=== PATIENT | female | born 1940 | race Caucasian/White ===

== ENCOUNTER → 2017-10-13 | Outpatient (CLI) | payer OTHER, MEDICAID ==
[2017-01-24 06:07] VITALS: BP 110/66
--- NOTE | 2017-10-18 11:32 | MG ---
HISTORY: SCREENING Comparison: 05/15/2015 FINDINGS: Bilateral CC and MLO projections of the right and left breast were obtained. Scattered fibroglandula r tissue is seen to be present. No significant architectural distortion, mass or clustered microcalc ifications can be observed to suggest malignancy. No skin thickening or nipple retraction is appreci ated. No pathological lymphadenopathy can be identified. Benign-appearing calcifications scattered throughout the right and left breasts are observed. IMPRESSION: NO RADIOGRAPHIC EVIDENCE OF MALIGNANCY. ACR CATEGORY: 2 - benign findings. FOLLOW-UP EXAM 1 YEAR. Diagnostic CAD was utilized and reviewed. * 0 (ZERO) - ASSESSMENT INCOMPLETE; ADDITIONAL IMAGING IS NEEDED. * 1/ (ONE) - NEGATIVE. * 2/II (TWO) - BENIGN FINDINGS. * 3/III (THREE) - PROBABLY BENIGN FINDING; SHORT INTERVAL FOLLOW-UP SUGGESTED. * 4/IV (FOUR) - SUSPICIOUS ABNORMALITY; BIOPSY SHOULD BE CONSIDERED. * 5/V - HIGHLY SUSPICIOUS OF MALIGNANCY; BIOPSY SHOULD BE PERFORMED. A NEGATIVE X-RAY REPORT SHOULD NOT DELAY BIOPSY IF A DOMINANT OR CLINICALLY SUSPICIOUS MASS IS PRESENT; 4 TO 8 PERCENT OF CANCERS ARE NOT IDENTIFIED BY X-RAY. A NEGA TIVE REPORT MAY REINFORCE THE CLINICAL IMPRESSION. ADENOSIS AND DENSE BREASTS MAY OBSCURE AN UNDERLY ING NEOPLASM. Reported By:
== END ==
LOC: RAD 13:33
PROVIDERS: ATTEND Nurse Practitioner Family
DX: Z12.31 Encounter for screening mammogram for malignant neoplasm of breast (principal)
CPT/HCPCS: 77067

== ENCOUNTER → 2017-12-24 | Outpatient (CLI) | payer OTHER, MEDICAID ==
[2017-01-24 06:07] VITALS: BP 110/66
--- NOTE | 2017-12-24 10:01 | RAD ---
Examination: Left hip, two views History: Hip pain Findings: No evidence for fracture, dislocation or osteolytic disease. Mild narrowing of joint space. The femoral head is in normal position. No periarticular calcification identified. Vascular stent gr afts are present at the aortoiliac bifurcation. Impression: Mild osteoarthritis. Reported By:
== END | disposition home or self-care (01) | DRG 556 ==
LOC: RAD 08:52
PROVIDERS: ATTEND Nurse Practitioner Family
DX: M25.552 Pain in left hip (principal); M16.12 Unilateral primary osteoarthritis, left hip
CPT/HCPCS: 73501

== ENCOUNTER 2018-01-24 12:04 | Day surgery (SDC) | payer OTHER, MEDICAID ==
[2018-01-24] MEDS ORDERED: KENALOG INJ 40 MG IM ONE (13:25)
[2018-01-24] MEDS ORDERED: MARCAINE 0.25% INJ ONE (13:25)
[2018-01-24] MEDS ORDERED: XYLOCAINE 1 % (PLAIN) ONE (13:25)
[2018-01-24 14:14] VITALS: BP 148/77
--- NOTE | 2018-01-24 15:19 | RAD ---
History: Shortness of breath Study: Chest two views Findings: PA and left lateral projections of the chest are compared to the study of 03/19/2016. Heart and mediastinal structures are unchanged in appearance. The permanent left-sided cardiac pacemaker r emains in place. There is overexpansion of the lungs with increase in the retrosternal airspace consi stent with underlying COPD. No acute process is evident. Impression: Probable COPD and no evidence of acute disease. Reported By:
== END 2018-01-24 14:00 | disposition home or self-care (01) | DRG 554 ==
LOC: SURG1 12:04
PROVIDERS: ATTEND Specialist
PROC: 3E0U3BZ Introduction of Anesthetic Agent into Joints, Percutaneous Approach (ICD-10-PCS; principal; 2018-01-24 13:15)
PROC: 3E0U33Z Introduction of Anti-inflammatory into Joints, Percutaneous Approach (ICD-10-PCS; principal; 2018-01-24 13:15)
DX: M16.12 Unilateral primary osteoarthritis, left hip (principal)
CPT/HCPCS: 20610; 71046; 76000; 77002; S0020; J2001; J3301

== ENCOUNTER 2024-09-26 18:34 | Inpatient (IN) ==
[2024-09-26] MEDS: NS 1,000 ML IV 1,000 ML IV ONE (19:10)
[2024-09-26] MEDS ORDERED: ASCORBIC ACID INJ MULTI-DOSE VIAL 1,500 MG in NS 50 ML IV 50 ML IV SCH (19:30)
[2024-09-26] MEDS: LEVAQUIN PREMIX IV 750 MG 750 MG/150 ML BAG IV ONE (19:31)
[2024-09-26] MEDS: SOLU-Medrol 125 MG VIAL IVP ONE (19:31)
[2024-09-26] MEDS: MAGNESIUM SULFATE 1 GRAM/100 mL PREMIX 1 G/100 ML BAG IV ONE (19:32)
[2024-09-26 19:45] LABS: EOSINOPHILS # (AUTO) 0.1 x10^3/uL (0.0-0.2); HEMOGLOBIN 13.7 g/dL (12.0-16.0); MEAN CORPUSCULAR HGB CONC 34.2 g/dL (33.0-35.0); MEAN PLATELET VOLUME 9.2 fL (7.4-11.0); MONOCYTES # (AUTO) 0 x10^3/uL (0.3-0.8)
[2024-09-26 19:48] LABS: BASOPHILS % (AUTO) 0.4 % (0.2-1.0); EOSINOPHILS % (AUTO) 1.4 % (0.9-2.9); LYMPHOCYTES % (AUTO) 24.6 % (21.0-51.0); MEAN CORPUSCULAR HEMOGLOBIN 31.7 pg (27.0-34.0); MEAN CORPUSCULAR VOLUME 92.6 fL (80.0-100.0); NEUTROPHILS % (AUTO) 72.6 % (42.0-75.0); PLATELET COUNT 54 X10^3/uL (150.0-450.0); RED BLOOD COUNT 4.32 X10^6/uL (3.5-5.4); RED CELL DISTRIBUTION WIDTH 15.8 % (11.6-16.5); WHITE BLOOD COUNT 4.2 X10^3/uL (3.6-10.0)
--- NOTE | 2024-09-26 19:54 | DR.DIARMA ---
HPI <Manny Singer - Last Filed: 09/26/24 20:15> Time seen Time Seen by Provider: 09/26/24 19:52 PCP Primary Care Physician: Lois Hidalgo HPI Comment HPI Comment: Patient with history of pancreatic cancer who was seen recently in the ED for UTI and started on Macrobid. Sensitivities resulted today and she is resistant to Macrobid but sensitive to Levaquin. Patient has had worsening weakness and episodes of incontinence over the weekend. Patient having some abdominal pain. Complaint Chief Complaint:: PT in ed with complaints of weakness and incontinent episodes since the weekend, pt was dx with a bladder infection and started on macrobid, still having lots of vaginal and abdominal pain. COVID-19 Coronavirus risk:travel/contact w/high risk person: No Has patient experienced Coronavirus symptoms: No Source History Provided: Patient Mode of Arrival Mode of Arrival: Wheelchair Timing Onset of Chief Complaint: 09/23/24 PMH <Manny Singer - Last Filed: 09/26/24 20:15> PMH Past Medical History: Yes Past Medical History: Arthritis, COPD, Dyslipidemia and Hypothyroidism Past Medical History Comment: Pancreatic CA Past Surgical History: Yes Surgical History: Appendectomy and Cholecystectomy Family History History of Family Medical Conditions: No Family Medical History: Diabetes Mellitus and Hypertension Social History Do you use any recreational Drugs:: No Travel Risk Coronavirus risk:travel/contact w/high risk person: No Has patient experienced Coronavirus symptoms: No Infectious screening Have you traveled outside the country in the last 6 months?: No Isolation: Standard ROS <Manny Singer - Last Filed: 09/26/24 20:15> Review of Systems Constitutional: See HPI; negative Fever Eyes: No Symptoms Reported ENTM: No Symptoms Reported Respiratoy: No Symptoms Reported Cardiovascular: No Symptoms Reported Gastrointestinal/Abdominal: See HPI Genitourinary: See HPI Neurological: No Symptoms Reported Musculoskeletal: No Symptoms Reported Integumentary: No Symptoms Reported Hematologic/Lymphatic: No Symptoms Reported Endocrine: No Symptoms Reported Psychiatric: No Symptoms Reported All Other Systems: Reviewed and Negative <Yanci Mason - Last Filed: 09/26/24 22:53> Review of Systems Eyes: Other (blind) PE <Manny Singer - Last Filed: 09/26/24 20:15> Vital Signs Vitals: Vital Signs Temperature 97.9 F Pulse Rate 70 Pulse Rate 77 Pulse Rate 75 Pulse Rate 81 Pulse Rate 74 Pulse Rate 76 Pulse Rate 76 Pulse Rate 73 Pulse Rate 70 Pulse Rate 106 Respiratory Rate 20 Blood Pressure 110/56 Blood Pressure 119/57 Blood Pressure 119/57 Blood Pressure 119/57 Blood Pressure 114/56 Blood Pressure 106/59 Blood Pressure 106/59 Blood Pressure 101/66 O2 Sat by Pulse Oximetry 95 O2 Sat by Pulse Oximetry 96 O2 Sat by Pulse Oximetry 96 O2 Sat by Pulse Oximetry 97 O2 Sat by Pulse Oximetry 95 O2 Sat by Pulse Oximetry 96 O2 Sat by Pulse Oximetry 96 O2 Sat by Pulse Oximetry 94 O2 Sat by Pulse Oximetry 96 O2 Sat by Pulse Oximetry 94 General Limitations: No Limitations General Appearance: Alert Head Head Exam: Normal Inspection Eyes Eye exam: Normal Appearance ENT ENT Exam: Normal Exam Neck Neck Exam: Normal Inspection Chest Chest Inspection: Normal Inspection Respiratory Respiratory Exam: Normal Lung Sounds Bilat Cardiovascular Cardiovascular Exam: Regular Rate and Normal Rhythm Abdominal Exam Abdominal Exam: Normal Inspection, Normal Bowel Sounds and Soft; negative Guarding, Rebound or Rigidity Rectal Rectal: Deferred Genitourinary Scrotum: Deferred Hernia: Deferred Prostate: Deferred Extremeties Extremities Exam: Normal Inspection Back Back Exam: Normal Inspection Neurologic Neurological Exam: Alert and Oriented X3 Psychiatric Psychiatric Exam: Normal Affect and Normal Mood Skin Skin Exam: Warm, Dry, Intact and Normal Color <Yanci Mason - Last Filed: 09/26/24 22:53> Vital Signs Vitals: Vital Signs Temperature 97.9 F Pulse Rate 70 Pulse Rate 77 Pulse Rate 75 Pulse Rate 81 Pulse Rate 74 Pulse Rate 76 Pulse Rate 76 Pulse Rate 73 Pulse Rate 70 Pulse Rate 106 Respiratory Rate 20 Blood Pressure 110/56 Blood Pressure 119/57 Blood Pressure 119/57 Blood Pressure 119/57 Blood Pressure 114/56 Blood Pressure 106/59 Blood Pressure 106/59 Blood Pressure 101/66 O2 Sat by Pulse Oximetry 95 O2 Sat by Pulse Oximetry 96 O2 Sat by Pulse Oximetry 96 O2 Sat by Pulse Oximetry 97 O2 Sat by Pulse Oximetry 95 O2 Sat by Pulse Oximetry 96 O2 Sat by Pulse Oximetry 96 O2 Sat by Pulse Oximetry 94 O2 Sat by Pulse Oximetry 96 O2 Sat by Pulse Oximetry 94 COURSE <Manny Singer - Last Filed: 09/26/24 20:15> Treatment Treatment: 20:00 -start IV Levaquin. Started IV fluids. Labs still pending. Discussed case with Dr. Mason was taken over shift here in the ER. Patient stable at this time <Yanci Mason - Last Filed: 09/26/24 22:53> Treatment Treatment: 20:00 -start IV Levaquin. Started IV fluids. Labs still pending. Discussed case with Dr. Mason was taken over shift here in the ER. Patient stable at this time. [address] Singer at 1999; pt resting comfortably; she has had no more diarrhea; pain is improved; will admit overnight to ensure potassium comes up and diarrhea improves Consultation Call Returned: 22:00 (s/w Dr Andersen who accepts admission) ROR <Manny Singer - Last Filed: 09/26/24 20:15> Labs Reviewed 09/26/24 19:36 09/26/24 19:55 Laboratory: WBC 4.2 X10^3/uL (3.6-10.0) 09/26/24 19:36 RBC 4.32 X10^6/uL (3.5-5.4) 09/26/24 19:36 Hgb 13.7 g/dL (12.0-16.0) 09/26/24 19:36 Hct 40.0 % (36.0-47.0) 09/26/24 19:36 MCV 92.6 fL (80.0-100.0) 09/26/24 19:36 MCH 31.7 pg (27.0-34.0) 09/26/24 19:36 MCHC 34.2 g/dL (33.0-35.0) 09/26/24 19:36 RDW 15.8 % (11.6-16.5) 09/26/24 19:36 Plt Count 54 X10^3/uL (150.0-450.0) L 09/26/24 19:36 MPV 9.2 fL (7.4-11.0) 09/26/24 19:36 Neut % (Auto) 72.6 % (42.0-75.0) 09/26/24 19:36 Lymph % (Auto) 24.6 % (21.0-51.0) 09/26/24 19:36 [place] % (Auto) 1.0 % (0.0-13.0) 09/26/24 19:36 Eos % (Auto) 1.4 % (0.9-2.9) 09/26/24 19:36 Baso % (Auto) 0.4 % (0.2-1.0) 09/26/24 19:36 Neut # (Auto) 3.0 x10^3/uL (2.2-4.8) 09/26/24 19:36 Lymph # (Auto) 1.0 X10^3/uL (1.3-2.9) L 09/26/24 19:36 [place] # (Auto) 0 x10^3/uL (0.3-0.8) L 09/26/24 19:36 Eos # (Auto) 0.1 x10^3/uL (0.0-0.2) 09/26/24 19:36 Baso # (Auto) 0.0 X10^3/uL (0.0-0.1) 09/26/24 19:36 Absolute Nucleated RBC 0.2 /100WBC 09/26/24 19:36 Sodium 137 mmol/L (136-145) 09/26/24 19:55 Corrected Sodium 138 mmol/L (136-145) 09/26/24 19:55 Potassium 2.9 mmol/L (3.5-5.1) L* 09/26/24 19:55 Chloride 97 mmol/L (98-107) L 09/26/24 19:55 Carbon Dioxide 25.2 mmol/L (21-32) 09/26/24 19:55 BUN 12 mg/dL (7-18) 09/26/24 19:55 Creatinine 1.01 mg/dL (0.55-1.02) 09/26/24 19:55 Est GFR (MDRD) Af Amer > 60 (>60) 09/26/24 19:55 Est GFR (MDRD) Non-Af 55 (>60) L 09/26/24 19:55 Glucose 121 mg/dL (65-99) H 09/26/24 19:55 Lactic Acid 1.4 mmol/L (0.4-2.0) 09/26/24 19:55 Calcium 8.8 mg/dL (8.5-10.1) 09/26/24 19:55 Corrected Calcium TNP 09/26/24 19:55 Total Bilirubin 1.10 mg/dL (0.2-1.0) H 09/26/24 19:55 AST 36 Units/L (15-37) 09/26/24 19:55 ALT 24 Units/L (12-78) 09/26/24 19:55 Alkaline Phosphatase 75 Units/L (46-116) 09/26/24 19:55 C-Reactive Protein 32.80 mg/L (0-3.0) H 09/26/24 19:55 Total Protein 6.6 g/dL (6.4-8.2) 09/26/24 19:55 Albumin 3.5 g/dL (3.4-5.0) 09/26/24 19:55 Globulin 3.1 g/dL (2.5-4.5) 09/26/24 19:55 Albumin/Globulin Ratio 1.1 Ratio (1.1-2.1) 09/26/24 19:55 <Yanci Mason - Last Filed: 09/26/24 22:53> Labs Reviewed Laboratory Results Reviewed?: Yes Laboratory: WBC 4.2 X10^3/uL (3.6-10.0) 09/26/24 19:36 RBC 4.32 X10^6/uL (3.5-5.4) 09/26/24 19:36 Hgb 13.7 g/dL (12.0-16.0) 09/26/24 19:36 Hct 40.0 % (36.0-47.0) 09/26/24 19:36 MCV 92.6 fL (80.0-100.0) 09/26/24 19:36 MCH 31.7 pg (27.0-34.0) 09/26/24 19:36 MCHC 34.2 g/dL (33.0-35.0) 09/26/24 19:36 RDW 15.8 % (11.6-16.5) 09/26/24 19:36 Plt Count 54 X10^3/uL (150.0-450.0) L 09/26/24 19:36 MPV 9.2 fL (7.4-11.0) 09/26/24 19:36 Neut % (Auto) 72.6 % (42.0-75.0) 09/26/24 19:36 Lymph % (Auto) 24.6 % (21.0-51.0) 09/26/24 19:36 [place] % (Auto) 1.0 % (0.0-13.0) 09/26/24 19:36 Eos % (Auto) 1.4 % (0.9-2.9) 09/26/24 19:36 Baso % (Auto) 0.4 % (0.2-1.0) 09/26/24 19:36 Neut # (Auto) 3.0 x10^3/uL (2.2-4.8) 09/26/24 19:36 Lymph # (Auto) 1.0 X10^3/uL (1.3-2.9) L 09/26/24 19:36 [place] # (Auto) 0 x10^3/uL (0.3-0.8) L 09/26/24 19:36 Eos # (Auto) 0.1 x10^3/uL (0.0-0.2) 09/26/24 19:36 Baso # (Auto) 0.0 X10^3/uL (0.0-0.1) 09/26/24 19:36 Absolute Nucleated RBC 0.2 /100WBC 09/26/24 19:36 Sodium 137 mmol/L (136-145) 09/26/24 19:55 Corrected Sodium 138 mmol/L (136-145) 09/26/24 19:55 Potassium 2.9 mmol/L (3.5-5.1) L* 09/26/24 19:55 Chloride 97 mmol/L (98-107) L 09/26/24 19:55 Carbon Dioxide 25.2 mmol/L (21-32) 09/26/24 19:55 BUN 12 mg/dL (7-18) 09/26/24 19:55 Creatinine 1.01 mg/dL (0.55-1.02) 09/26/24 19:55 Est GFR (MDRD) Af Amer > 60 (>60) 09/26/24 19:55 Est GFR (MDRD) Non-Af 55 (>60) L 09/26/24 19:55 Glucose 121 mg/dL (65-99) H 09/26/24 19:55 Lactic Acid 1.4 mmol/L (0.4-2.0) 09/26/24 19:55 Calcium 8.8 mg/dL (8.5-10.1) 09/26/24 19:55 Corrected Calcium TNP 09/26/24 19:55 Total Bilirubin 1.10 mg/dL (0.2-1.0) H 09/26/24 19:55 AST 36 Units/L (15-37) 09/26/24 19:55 ALT 24 Units/L (12-78) 09/26/24 19:55 Alkaline Phosphatase 75 Units/L (46-116) 09/26/24 19:55 C-Reactive Protein 32.80 mg/L (0-3.0) H 09/26/24 19:55 Total Protein 6.6 g/dL (6.4-8.2) 09/26/24 19:55 Albumin 3.5 g/dL (3.4-5.0) 09/26/24 19:55 Globulin 3.1 g/dL (2.5-4.5) 09/26/24 19:55 Albumin/Globulin Ratio 1.1 Ratio (1.1-2.1) 09/26/24 19:55 Other Results Comments: 09/23/24 urine: K. pneumonia and P. mirabilis resistant to macrobid and tcn 09/23/24 covid + XRAY XRAY Interpreted by: Radiologist X-ray Results: pcxr: No imaging findings of acute cardiopulmonary disease. Opioid <Manny Singer - Last Filed: 09/26/24 20:15> Opioid Risk Tool Age (Raymon box if 16-45): No History of Preadolescent Sexual Abuse: No Total: 0 Total Score Risk Category: Low Risk Copyright: Xavier FREIRE predicting aberrant behaviors <Yanci Mason - Last Filed: 09/26/24 22:53> Opioid Risk Tool Total: 0 Total Score Risk Category: Low Risk Discharge Plan Diagnosis Discharge Problem: Cystitis, COVID-19, Acute hypokalemia, Diarrhea Discharge Plan Patient Disposition: 09 ADMITTED INPATIENT Condition: Stable
[2024-09-26 20:15] LABS: ALANINE AMINOTRANSFERASE 24 Units/L (12-78); ALBUMIN 3.5 g/dL (3.4-5.0); ALKALINE PHOSPHATASE 75 Units/L (46-116); ASPARTATE AMINO TRANSFERASE 36 Units/L (15-37); BLOOD UREA NITROGEN 12 mg/dL (7-18); CALCIUM 8.8 mg/dL (8.5-10.1); CARBON DIOXIDE 25.2 mmol/L (21-32); CHLORIDE 97 mmol/L (98-107); COR NA(FOR HYPERGLY) 138 mmol/L (136-145); CREATININE 1.01 mg/dL (0.55-1.02); GLUCOSE 121 mg/dL (65-99); SODIUM 137 mmol/L (136-145); TOTAL PROTEIN 6.6 g/dL (6.4-8.2); eGFR NON BLACK RACES 55 (>60)
[2024-09-26 20:21] LABS: POTASSIUM 2.9 mmol/L (3.5-5.1)
[2024-09-26] MEDS: K-DUR TAB 20 MEQ PO STA (20:48)
--- NOTE | 2024-09-26 22:37 | RAD ---
EXAM: CHEST, 1 VIEW HISTORY: weakness and incontinent episodes since the weekend, pt was dx with a bladder infection and started o n macrobid, still having lots of vaginal and abdominal pain.; COMPARISON: April 07, 2022 TECHNIQUE: Chest radiographic imaging, AP portable projection, 1 image FINDINGS: No cardiomegaly. Pacemaker in place. Right chest port in place. No focal airspace disease. No pleural effusion. No pneumothorax. No acute osseous abnormality. IMPRESSION: No imaging findings of acute cardiopulmonary disease. THIS IS AN ELECTRONICALLY VERIFIED FINAL REPORT 09/26/2024 10:33 PM - Electronically signed by Jose Roberto Jaramillo MD
[2024-09-26] MEDS ORDERED: CONSULT PHARMACY - POTASSIUM & MAGNESIUM XX SCH (23:00)
[2024-09-26] MEDS: NS 1,000 ML IV 1,000 ML IV SCH (23:41)
[2024-09-27] MEDS: BUTT CREAM (COMPOUND) TOP PRN (00:37)
[2024-09-27] MEDS: MAGNESIUM SULFATE 1 GRAM/100 mL PREMIX 1 G/100 ML BAG IV ONE (05:04)
[2024-09-27] MEDS: LEVAQUIN PREMIX IV 750 MG 750 MG/150 ML BAG IV ONE (05:05)
[2024-09-27] MEDS: K-DUR TAB 20 MEQ PO ONE (05:05)
[2024-09-27] MEDS: SOLU-Medrol 125 MG VIAL ONE (05:05)
[2024-09-27 05:26] LABS: BASOPHILS % (AUTO) 0.1 % (0.2-1.0); EOSINOPHILS % (AUTO) 0.1 % (0.9-2.9); HEMATOCRIT 32.9 % (36.0-47.0); LYMPHOCYTES # (AUTO) 0.4 X10^3/uL (1.3-2.9); LYMPHOCYTES % (AUTO) 18.7 % (21.0-51.0); MEAN CORPUSCULAR HEMOGLOBIN 31.5 pg (27.0-34.0); MEAN CORPUSCULAR VOLUME 92.5 fL (80.0-100.0); MEAN PLATELET VOLUME 9.2 fL (7.4-11.0); MONOCYTES # (AUTO) 0 x10^3/uL (0.3-0.8); NEUTROPHILS # (AUTO) 1.8 x10^3/uL (2.2-4.8); NEUTROPHILS % (AUTO) 80.1 % (42.0-75.0); PLATELET COUNT 38 X10^3/uL (150.0-450.0); RED BLOOD COUNT 3.56 X10^6/uL (3.5-5.4); RED CELL DISTRIBUTION WIDTH 15.8 % (11.6-16.5); WHITE BLOOD COUNT 2.3 X10^3/uL (3.6-10.0)
[2024-09-27 05:42] LABS: ALANINE AMINOTRANSFERASE 17 Units/L (12-78); ALBUMIN 2.7 g/dL (3.4-5.0); ALKALINE PHOSPHATASE 60 Units/L (46-116); ASPARTATE AMINO TRANSFERASE 30 Units/L (15-37); BLOOD UREA NITROGEN 11 mg/dL (7-18); CARBON DIOXIDE 20.9 mmol/L (21-32); CHLORIDE 102 mmol/L (98-107); COR NA(FOR HYPERGLY) 140 mmol/L (136-145); CREATININE 0.76 mg/dL (0.55-1.02); GLUCOSE 125 mg/dL (65-99); POTASSIUM 4.7 mmol/L (3.5-5.1); SODIUM 139 mmol/L (136-145); TOTAL PROTEIN 5.6 g/dL (6.4-8.2); eGFR NON BLACK RACES > 60 (>60)
[2024-09-27 06:06] LABS: HEMOGLOBIN 11.2 g/dL (12.0-16.0)
[2024-09-27 06:07] LABS: BAND NEUTROPHILS % 2 % (0-10); PLATELET MORPHOLOGY COMMENT NORMAL (NORMAL)
[2024-09-27] MEDS: K-DUR TAB 20 MEQ PO SCH (08:05)
[2024-09-27 08:31] LABS: AMYLASE 62 Units/L (25-115); LIPASE 43 Units/L (16-77)
[2024-09-27] MEDS: DUONEB 0.5 MG/3 MG (3 mL) NEB SCH (08:56)
[2024-09-27] MEDS ORDERED: MARINOL PO SCH (09:00)
[2024-09-27] MEDS: PROTONIX INJ 40 MG VIAL IVP SCH (09:09)
[2024-09-27] MEDS: LEVAQUIN PREMIX IV 500 MG 500 MG/100 ML BAG IV SCH (09:09)
[2024-09-27] MEDS: ROBITUSSIN CF SYRUP PO SCH (11:00)
--- NOTE | 2024-09-27 11:33 | DR.H&P ---
H&P History & Physical for Day of: H&P Date: 09/26/24 Chief Complaint Chief Complaint: WEAKNESS, UTI History of Present Illness History of Present Illness: PT IS 84 WF, ER ADMISSION WITH CO UTI, FAILED OUTPT THERAPY AND INCREASED CCC WITH COVID EXPOSURE. PT HAS PMH OF PANCREATIC CANCER AND UNDER CHEMO THERAPY AT THIS TIME WITH DR. ORTIZ [facility] [place]. PT HAS HX OF CAD, AFIB WITH [facility] ANTICOAGULANT THERAPY. PT WAS COVID POSITIVE ON ADMISSION IN ER. PT ADMITTED FOR EVALUATION AND TREATMENT OF ACUTE ILLNESS. Past Medical History Past Medical History: Arthritis, COPD, Dyslipidemia and Hypothyroidism Past Surgical History Surgical History: Cholecystectomy and Hysterectomy Family History Family Medical History: Cancer and [place] Social History Does patient currently use any type of tobacco product: No Type of Tobacco Use: Cigarettes How many years tobacco product used: 30 Does any household member use tobacco: No Alcohol Use: None Drug Use: None Medications Home Medications: Home Medications Medication Instructions Recorded Confirmed Type dronabinol 2.5 mg capsule 2.5 mg PO BID 09/26/24 09/26/24 History Allergies Allergies Allergy/AdvReac Type Severity Reaction Status Date / Time ketamine Allergy Verified 04/01/22 11:22 codeine AdvReac Verified 05/18/24 08:21 Labs 09/27/24 04:06 09/27/24 04:06 Labs: Laboratory WBC 2.3 X10^3/uL (3.6-10.0) L 09/27/24 04:06 RBC 3.56 X10^6/uL (3.5-5.4) 09/27/24 04:06 Hgb 11.2 g/dL (12.0-16.0) L D 09/27/24 04:06 Hct 32.9 % (36.0-47.0) L 09/27/24 04:06 MCV 92.5 fL (80.0-100.0) 09/27/24 04:06 MCH 31.5 pg (27.0-34.0) 09/27/24 04:06 MCHC 34.0 g/dL (33.0-35.0) 09/27/24 04:06 RDW 15.8 % (11.6-16.5) 09/27/24 04:06 Plt Count 38 X10^3/uL (150.0-450.0) L 09/27/24 04:06 Plt Count Comment Decreased (ADEQUATE) A 09/27/24 04:06 MPV 9.2 fL (7.4-11.0) 09/27/24 04:06 Neut % (Auto) 80.1 % (42.0-75.0) H 09/27/24 04:06 Lymph % (Auto) 18.7 % (21.0-51.0) L 09/27/24 04:06 [place] % (Auto) 1.0 % (0.0-13.0) 09/27/24 04:06 Eos % (Auto) 0.1 % (0.9-2.9) L 09/27/24 04:06 Baso % (Auto) 0.1 % (0.2-1.0) L 09/27/24 04:06 Neut # (Auto) 1.8 x10^3/uL (2.2-4.8) L 09/27/24 04:06 Lymph # (Auto) 0.4 X10^3/uL (1.3-2.9) L 09/27/24 04:06 [place] # (Auto) 0 x10^3/uL (0.3-0.8) L 09/27/24 04:06 Eos # (Auto) 0.0 x10^3/uL (0.0-0.2) 09/27/24 04:06 Baso # (Auto) 0.0 X10^3/uL (0.0-0.1) 09/27/24 04:06 Absolute Nucleated RBC 0.1 /100WBC 09/27/24 04:06 Total Counted 50 09/27/24 04:06 Neutrophils % (Manual) 80 % (39-76) H 09/27/24 04:06 Band Neutrophils % 2 % (0-10) 09/27/24 04:06 Lymphocytes % (Manual) 16 % (13-43) 09/27/24 04:06 Monocytes % (Manual) 2 % (4-9) L 09/27/24 04:06 Plt Morphology Comment Normal (NORMAL) 09/27/24 04:06 RBC Morphology Normal (NORMAL) 09/27/24 04:06 Sodium 139 mmol/L (136-145) 09/27/24 04:06 Corrected Sodium 140 mmol/L (136-145) 09/27/24 04:06 Potassium 4.7 mmol/L (3.5-5.1) 09/27/24 04:06 Chloride 102 mmol/L (98-107) 09/27/24 04:06 Carbon Dioxide 20.9 mmol/L (21-32) L 09/27/24 04:06 BUN 11 mg/dL (7-18) 09/27/24 04:06 Creatinine 0.76 mg/dL (0.55-1.02) 09/27/24 04:06 Est GFR (MDRD) Af Amer > 60 (>60) 09/27/24 04:06 Est GFR (MDRD) Non-Af > 60 (>60) 09/27/24 04:06 Glucose 125 mg/dL (65-99) H 09/27/24 04:06 Lactic Acid 1.4 mmol/L (0.4-2.0) 09/26/24 19:55 Calcium 8.0 mg/dL (8.5-10.1) L 09/27/24 04:06 Corrected Calcium 9.0 mg/dL (8.5-10.1) 09/27/24 04:06 Magnesium 1.3 mg/dL (2.0-2.9) L 09/26/24 19:55 Total Bilirubin 0.70 mg/dL (0.2-1.0) 09/27/24 04:06 AST 30 Units/L (15-37) 09/27/24 04:06 ALT 17 Units/L (12-78) 09/27/24 04:06 Alkaline Phosphatase 60 Units/L (46-116) 09/27/24 04:06 C-Reactive Protein 32.80 mg/L (0-3.0) H 09/26/24 19:55 Total Protein 5.6 g/dL (6.4-8.2) L 09/27/24 04:06 Albumin 2.7 g/dL (3.4-5.0) L 09/27/24 04:06 Globulin 2.9 g/dL (2.5-4.5) 09/27/24 04:06 Albumin/Globulin Ratio 0.9 Ratio (1.1-2.1) L 09/27/24 04:06 Amylase 62 Units/L (25-115) 09/27/24 04:06 Lipase 43 Units/L (16-77) 09/27/24 04:06 Review of Systems Constitutional: Weakness and Malaise Eyes: No Symptoms Reported ENT: Throat Swelling Respiratory: Shortness of Breath Cardiovascular: Palpitations Gastrointestinal: Nausea and Abdominal Pain Genitourinary: Dysuria, Frequency and Incontinence Musculoskeletal: Back Pain Skin: No Symptoms Reported Neurological: Weakness Physical Exam Vital Signs: Vital Signs Temperature 98.8 F Temperature 98.7 F Pulse Rate [Left Radial] 83 Pulse Rate [Left Radial] 70 Pulse Rate [Left Radial] 72 Pulse Rate [Left Radial] 69 Pulse Rate [Left Radial] 72 Pulse Rate [Left Radial] 71 Pulse Rate [Left Radial] 71 Pulse Rate 75 Respiratory Rate 21 Respiratory Rate 26 Respiratory Rate 22 Respiratory Rate 16 Respiratory Rate 14 Respiratory Rate 13 Respiratory Rate 14 Blood Pressure [Left Arm] 113/64 Blood Pressure [Left Arm] 128/60 Blood Pressure [Left Arm] 115/61 Blood Pressure [Left Arm] 145/65 Blood Pressure [Left Arm] 120/60 Blood Pressure [Left Arm] 166/68 Blood Pressure [Left Arm] 135/66 O2 Sat by Pulse Oximetry 95 O2 Sat by Pulse Oximetry 98 O2 Sat by Pulse Oximetry 96 O2 Sat by Pulse Oximetry 96 O2 Sat by Pulse Oximetry 96 O2 Sat by Pulse Oximetry 95 O2 Sat by Pulse Oximetry 94 O2 Sat by Pulse Oximetry 96 Oriented: Normal Eyes: Normal Ear: Normal Nose: Discharge Throat: Exudate Respiratory: RLL Diminished and LLL Diminished Cardiovascular: Murmur : Normal Auscultation: Bowel Sounds: Decreased Palpation: negative Spleen Enlarged or Liver Enlarged Tenderness: Diffuse, Epigastric and Mild Skin: Decreased Turgur Musculoskeletal: Back:Lumbar Psychiatric: Anxiety Mood Description: Anxious Affect: Normal Speech Pattern: Clear Assessment/Plan (1) Acute cystitis: Status: Acute Plan: ADMIT, RESP THERAPY IV ATBX, CXR ON ADMISSION GENTLE IV HYDRATION PAIN AND NAUSEA CONTROL VERIFY HOME MEDICATION, SUPPLEMENTAL O2 REPLACEMENT THERAPY (2) COVID-19: Status: Acute (3) COPD (chronic obstructive pulmonary disease): Qualifiers: COPD type: unspecified COPD Qualified Code(s): J44.9 - Chronic obstructive pulmonary disease, unspecified Status: Acute (4) Pancreatic cancer: Status: Acute (5) Chemotherapy-induced fatigue: Status: Acute
[2024-09-27] MEDS: MARINOL PO SCH (13:37)
[2024-09-28 05:38] LABS: BASOPHILS % (AUTO) 0 % (0.2-1.0); HEMATOCRIT 26.9 % (36.0-47.0); HEMOGLOBIN 9.2 g/dL (12.0-16.0); LYMPHOCYTES # (AUTO) 0.2 X10^3/uL (1.3-2.9); LYMPHOCYTES % (AUTO) 12.4 % (21.0-51.0); MEAN CORPUSCULAR HEMOGLOBIN 31.4 pg (27.0-34.0); MEAN CORPUSCULAR HGB CONC 34.2 g/dL (33.0-35.0); MEAN CORPUSCULAR VOLUME 92.1 fL (80.0-100.0); MONOCYTES # (AUTO) 0 x10^3/uL (0.3-0.8); MONOCYTES % (AUTO) 2.3 % (0.0-13.0); NEUTROPHILS # (AUTO) 1.7 x10^3/uL (2.2-4.8); NEUTROPHILS % (AUTO) 85.3 % (42.0-75.0); PLATELET COUNT 25 X10^3/uL (150.0-450.0); RED BLOOD COUNT 2.92 X10^6/uL (3.5-5.4); RED CELL DISTRIBUTION WIDTH 15.8 % (11.6-16.5)
[2024-09-28 05:56] LABS: ALANINE AMINOTRANSFERASE 18 Units/L (12-78); ALBUMIN 2.6 g/dL (3.4-5.0); ALKALINE PHOSPHATASE 51 Units/L (46-116); ASPARTATE AMINO TRANSFERASE 32 Units/L (15-37); BLOOD UREA NITROGEN 10 mg/dL (7-18); CALCIUM 7.9 mg/dL (8.5-10.1); CARBON DIOXIDE 20.7 mmol/L (21-32); CHLORIDE 103 mmol/L (98-107); COR NA(FOR HYPERGLY) 138 mmol/L (136-145); GLUCOSE 135 mg/dL (65-99); MAGNESIUM 1.2 mg/dL (2.0-2.9); POTASSIUM 3.7 mmol/L (3.5-5.1); SODIUM 137 mmol/L (136-145); TOTAL PROTEIN 5.1 g/dL (6.4-8.2); eGFR NON BLACK RACES > 60 (>60)
[2024-09-28 06:20] LABS: PLATELET MORPHOLOGY COMMENT NORMAL (NORMAL)
[2024-09-28] MEDS ORDERED: CONSULT PHARMACY - POTASSIUM & MAGNESIUM XX SCH (07:00)
[2024-09-28] MEDS: MAG-OX TAB PO SCH (09:52)
[2024-09-28] MEDS: PYRIDIUM PO SCH (10:15)
[2024-09-28] MEDS: K-DUR TAB 20 MEQ PO SCH (11:00)
[2024-09-28 14:33] LABS: LYMPHOCYTES # (AUTO) 0.3 X10^3/uL (1.3-2.9); MONOCYTES # (AUTO) 0.1 x10^3/uL (0.3-0.8); NEUTROPHILS # (AUTO) 2.3 x10^3/uL (2.2-4.8); WHITE BLOOD COUNT 2.7 X10^3/uL (3.6-10.0)
[2024-09-28 14:37] LABS: BASOPHILS % (AUTO) 0.1 % (0.2-1.0); MEAN CORPUSCULAR VOLUME 92.3 fL (80.0-100.0)
[2024-09-28 14:41] LABS: EOSINOPHILS % (AUTO) 0.2 % (0.9-2.9); HEMATOCRIT 30.6 % (36.0-47.0); HEMOGLOBIN 10.8 g/dL (12.0-16.0); LYMPHOCYTES % (AUTO) 11.9 % (21.0-51.0); MEAN CORPUSCULAR HEMOGLOBIN 32.5 pg (27.0-34.0); MEAN CORPUSCULAR HGB CONC 35.2 g/dL (33.0-35.0); MEAN PLATELET VOLUME 10.1 fL (7.4-11.0); MONOCYTES % (AUTO) 3.3 % (0.0-13.0); NEUTROPHILS % (AUTO) 84.5 % (42.0-75.0); PLATELET COUNT 28 X10^3/uL (150.0-450.0); RED BLOOD COUNT 3.31 X10^6/uL (3.5-5.4); RED CELL DISTRIBUTION WIDTH 15.6 % (11.6-16.5)
[2024-09-28] MEDS: NS 1,000 ML IV 1,000 ML with MAGNESIUM SULFATE 50% INJ VIAL 2 G IV SCH (14:51)
[2024-09-28 15:17] LABS: PLATELET MORPHOLOGY COMMENT NORMAL (NORMAL)
--- NOTE | 2024-09-28 17:49 | PCM.PROG ---
Progress Note Progress Note for Day of Date of Exam: 09/28/24 Subjective Subjective: PT IS 84 WF, ER ADMISSION WITH URI SYMPTOMS AFTER COVID EXPOSURE AND FAILED OP TREATMENT OF A UTI. PT TESTED POSITIVE FOR COVID IN THE ER AND WAS STARTED ON IV ATBX AND RESP THERAPY. PT HAD CXR ORDERED FOR THIS AM. SHE IS CURRENTLY UNDER CHEMO THERAPY FOR PANCREATIC CANCER. PT HAS PANCYTOPENIA, PLATELETS AT 25 THIS AM WITHOUT S/S BLEEDING. REPEAT PLATELETS ORDERED FOR THIS AFTERNOON. PT INSTRUCTED TO MONITOR FOR S/S BLEEDING. PT O2 SAT AT 96 ON 2LNC. PT CO BLADDER SPASMS. PT REPORTS POOR APPTETITE. PLAN TO CONTIUES WITH GENTLE IV HYDRATION AND DUO NEBS. Past Medical Family Social History Allergies: Allergies ketamine Allergy (Verified 04/01/22 11:22) codeine Adverse Reaction (Verified 05/18/24 08:21) Vital Signs and I&O's Vital Signs: Vital Signs Pulse Rate 77 Pulse Rate 79 Pulse Rate 83 Pulse Rate 82 Pulse Rate 83 Pulse Rate 89 Pulse Rate 81 Pulse Rate 84 Pulse Rate 87 Pulse Rate 89 Pulse Rate 80 Pulse Rate 80 Pulse Rate 77 Pulse Rate 79 Pulse Rate 80 Pulse Rate 77 Pulse Rate 91 Pulse Rate 93 Pulse Rate 80 Pulse Rate 78 Pulse Rate 97 Pulse Rate 79 Pulse Rate 79 Pulse Rate 81 Pulse Rate 91 Pulse Rate 80 Pulse Rate 82 Respiratory Rate 21 Respiratory Rate 19 Respiratory Rate 19 Respiratory Rate 19 Respiratory Rate 18 Respiratory Rate 20 Respiratory Rate 18 Respiratory Rate 20 Respiratory Rate 17 Respiratory Rate 30 Respiratory Rate 20 Respiratory Rate 18 Respiratory Rate 19 Respiratory Rate 19 Respiratory Rate 18 Respiratory Rate 17 Respiratory Rate 21 Respiratory Rate 21 Respiratory Rate 18 Respiratory Rate 19 Respiratory Rate 29 Respiratory Rate 18 Respiratory Rate 18 Respiratory Rate 18 Respiratory Rate 15 Respiratory Rate 19 Respiratory Rate 19 Blood Pressure 136/60 Blood Pressure 114/56 Blood Pressure 102/51 O2 Sat by Pulse Oximetry 96 O2 Sat by Pulse Oximetry 96 O2 Sat by Pulse Oximetry 96 O2 Sat by Pulse Oximetry 95 O2 Sat by Pulse Oximetry 96 O2 Sat by Pulse Oximetry 96 O2 Sat by Pulse Oximetry 95 O2 Sat by Pulse Oximetry 95 O2 Sat by Pulse Oximetry 97 O2 Sat by Pulse Oximetry 95 O2 Sat by Pulse Oximetry 99 O2 Sat by Pulse Oximetry 96 O2 Sat by Pulse Oximetry 96 O2 Sat by Pulse Oximetry 95 O2 Sat by Pulse Oximetry 95 O2 Sat by Pulse Oximetry 96 O2 Sat by Pulse Oximetry 95 O2 Sat by Pulse Oximetry 95 O2 Sat by Pulse Oximetry 96 O2 Sat by Pulse Oximetry 96 O2 Sat by Pulse Oximetry 96 O2 Sat by Pulse Oximetry 96 O2 Sat by Pulse Oximetry 95 O2 Sat by Pulse Oximetry 95 O2 Sat by Pulse Oximetry 97 O2 Sat by Pulse Oximetry 94 O2 Sat by Pulse Oximetry 94 Intake and Output: Intake & Output 09/26/24 09/27/24 09/28/24 09/29/24 11:59 11:59 11:59 11:59 Intake Total 1414 / 1414 903 / 903 699 / 699 Output Total 50 / 50 616 / 616 250 / 250 Balance 1364 / 1364 287 / 287 449 / 449 Physical Exam Oriented: Normal Eyes: Normal Ear: Normal Nose: Discharge Throat: Exudate Respiratory: Rhonchi Cardiovascular: Murmur : Normal Auscultation: Bowel Sounds: Decreased Tenderness: Diffuse, Epigastric and Mild Skin: Decreased Turgur Musculoskeletal: Back:Lumbar Psychiatric: Anxiety Mood Description: Anxious Affect: Normal Speech Pattern: Clear and Appropriate Laboratory and Diagnostics 09/28/24 14:00 09/28/24 04:16 Labs: Laboratory WBC 2.7 X10^3/uL (3.6-10.0) L 09/28/24 14:00 RBC 3.31 X10^6/uL (3.5-5.4) L 09/28/24 14:00 Hgb 10.8 g/dL (12.0-16.0) L 09/28/24 14:00 Hct 30.6 % (36.0-47.0) L 09/28/24 14:00 MCV 92.3 fL (80.0-100.0) 09/28/24 14:00 MCH 32.5 pg (27.0-34.0) 09/28/24 14:00 MCHC 35.2 g/dL (33.0-35.0) H 09/28/24 14:00 RDW 15.6 % (11.6-16.5) 09/28/24 14:00 Plt Count 28 X10^3/uL (150.0-450.0) L 09/28/24 14:00 Plt Count Comment Decreased (ADEQUATE) A 09/28/24 14:00 MPV 10.1 fL (7.4-11.0) 09/28/24 14:00 Neut % (Auto) 84.5 % (42.0-75.0) H 09/28/24 14:00 Lymph % (Auto) 11.9 % (21.0-51.0) L 09/28/24 14:00 [place] % (Auto) 3.3 % (0.0-13.0) 09/28/24 14:00 Eos % (Auto) 0.2 % (0.9-2.9) L 09/28/24 14:00 Baso % (Auto) 0.1 % (0.2-1.0) L 09/28/24 14:00 Neut # (Auto) 2.3 x10^3/uL (2.2-4.8) 09/28/24 14:00 Lymph # (Auto) 0.3 X10^3/uL (1.3-2.9) L 09/28/24 14:00 [place] # (Auto) 0.1 x10^3/uL (0.3-0.8) L 09/28/24 14:00 Eos # (Auto) 0.0 x10^3/uL (0.0-0.2) 09/28/24 14:00 Baso # (Auto) 0.0 X10^3/uL (0.0-0.1) 09/28/24 14:00 Absolute Nucleated RBC 0.2 /100WBC 09/28/24 14:00 Total Counted 50 09/28/24 14:00 Neutrophils % (Manual) 90 % (39-76) H 09/28/24 14:00 Band Neutrophils % 2 % (0-10) 09/27/24 04:06 Lymphocytes % (Manual) 8 % (13-43) L 09/28/24 14:00 Monocytes % (Manual) 2 % (4-9) L 09/28/24 14:00 Plt Morphology Comment Normal (NORMAL) 09/28/24 14:00 RBC Morphology Normal (NORMAL) 09/28/24 14:00 Sodium 137 mmol/L (136-145) 09/28/24 04:16 Corrected Sodium 138 mmol/L (136-145) 09/28/24 04:16 Potassium 3.7 mmol/L (3.5-5.1) 09/28/24 04:16 Chloride 103 mmol/L (98-107) 09/28/24 04:16 Carbon Dioxide 20.7 mmol/L (21-32) L 09/28/24 04:16 BUN 10 mg/dL (7-18) 09/28/24 04:16 Creatinine 0.70 mg/dL (0.55-1.02) 09/28/24 04:16 Est GFR (MDRD) Af Amer > 60 (>60) 09/28/24 04:16 Est GFR (MDRD) Non-Af > 60 (>60) 09/28/24 04:16 Glucose 135 mg/dL (65-99) H 09/28/24 04:16 Lactic Acid 1.4 mmol/L (0.4-2.0) 09/26/24 19:55 Calcium 7.9 mg/dL (8.5-10.1) L 09/28/24 04:16 Corrected Calcium 9.0 mg/dL (8.5-10.1) 09/28/24 04:16 Magnesium 1.2 mg/dL (2.0-2.9) L 09/28/24 04:16 Total Bilirubin 0.60 mg/dL (0.2-1.0) 09/28/24 04:16 AST 32 Units/L (15-37) 09/28/24 04:16 ALT 18 Units/L (12-78) 09/28/24 04:16 Alkaline Phosphatase 51 Units/L (46-116) 09/28/24 04:16 C-Reactive Protein 32.80 mg/L (0-3.0) H 09/26/24 19:55 Total Protein 5.1 g/dL (6.4-8.2) L 09/28/24 04:16 Albumin 2.6 g/dL (3.4-5.0) L 09/28/24 04:16 Globulin 2.5 g/dL (2.5-4.5) 09/28/24 04:16 Albumin/Globulin Ratio 1.0 Ratio (1.1-2.1) L 09/28/24 04:16 Amylase 62 Units/L (25-115) 09/27/24 04:06 Lipase 43 Units/L (16-77) 09/27/24 04:06 Plan (1) Acute cystitis: Status: Acute Plan: RESP THERAPY IV ATBX, CXR ON ADMISSION GENTLE IV HYDRATION PAIN AND NAUSEA CONTROL VERIFY HOME MEDICATION, SUPPLEMENTAL O2 REPLACEMENT THERAPY MONITOR FOR S/S BLEEDING, NO ANTICOAGULANTS (2) COVID-19: Status: Acute (3) COPD (chronic obstructive pulmonary disease): Status: Acute Qualifiers: COPD type: unspecified COPD Qualified Code(s): J44.9 - Chronic obstructive pulmonary disease, unspecified (4) Pancreatic cancer: Status: Acute (5) Chemotherapy-induced fatigue: Status: Acute (6) Pancytopenia due to chemotherapy: Status: Acute
[2024-09-29 06:05] LABS: BASOPHILS % (AUTO) 0 % (0.2-1.0); HEMATOCRIT 27.9 % (36.0-47.0); HEMOGLOBIN 9.7 g/dL (12.0-16.0); LYMPHOCYTES # (AUTO) 0.3 X10^3/uL (1.3-2.9); LYMPHOCYTES % (AUTO) 16.4 % (21.0-51.0); MEAN CORPUSCULAR HEMOGLOBIN 32.2 pg (27.0-34.0); MEAN CORPUSCULAR HGB CONC 34.9 g/dL (33.0-35.0); MEAN CORPUSCULAR VOLUME 92.3 fL (80.0-100.0); MONOCYTES # (AUTO) 0.1 x10^3/uL (0.3-0.8); NEUTROPHILS # (AUTO) 1.6 x10^3/uL (2.2-4.8); NEUTROPHILS % (AUTO) 76.6 % (42.0-75.0); RED BLOOD COUNT 3.02 X10^6/uL (3.5-5.4); RED CELL DISTRIBUTION WIDTH 15.9 % (11.6-16.5); WHITE BLOOD COUNT 2.1 X10^3/uL (3.6-10.0)
[2024-09-29 06:09] LABS: ALANINE AMINOTRANSFERASE 52 Units/L (12-78); ALBUMIN 2.7 g/dL (3.4-5.0); ALKALINE PHOSPHATASE 52 Units/L (46-116); ASPARTATE AMINO TRANSFERASE 68 Units/L (15-37); BLOOD UREA NITROGEN 10 mg/dL (7-18); CALCIUM 8.3 mg/dL (8.5-10.1); CARBON DIOXIDE 24.8 mmol/L (21-32); CHLORIDE 105 mmol/L (98-107); COR CA(FOR HYPOALB) 9.3 mg/dL (8.5-10.1); COR NA(FOR HYPERGLY) 137 mmol/L (136-145); CREATININE 0.77 mg/dL (0.55-1.02); GLUCOSE 119 mg/dL (65-99); POTASSIUM 4.7 mmol/L (3.5-5.1); SODIUM 137 mmol/L (136-145); TOTAL PROTEIN 5.1 g/dL (6.4-8.2); eGFR NON BLACK RACES > 60 (>60)
[2024-09-29 06:14] LABS: PLATELET COUNT 19 X10^3/uL (150.0-450.0)
[2024-09-29 07:00] LABS: PLATELET MORPHOLOGY COMMENT NORMAL (NORMAL)
[2024-09-29 08:17] LABS: INR 1.16 (0.8-1.3)
[2024-09-29] MEDS: NS 1,000 ML IV 1,000 ML with MAGNESIUM SULFATE 50% INJ VIAL 1 G IV SCH (08:48)
--- NOTE | 2024-09-29 09:15 | RAD ---
EXAM: CHEST x-ray, 1 VIEW HISTORY: COVID 19; COPD, PANCREATIC CA SX: APPY, FREDDY - COMPARISON: X-ray 09/26/2024 FINDINGS: Probable COPD. Central venous catheter terminates in the region of the mid SVC. Pacemaker leads are directed towards the right atrial appendage and right ventricular apex. Heart is normal in size. Mild atelectasis is seen in the right lung base. There may be vague peripheral infiltrates in the marlin ngs but appearance could be artifactual. IMPRESSION: Possible mild changes of COVID-19 pneumonia, similar to prior study. Continued x-ray follow up is re commended. THIS IS AN ELECTRONICALLY VERIFIED FINAL REPORT 09/29/2024 9:11 AM - Electronically signed by Rodger Frances MD
[2024-09-29] MEDS: ATIVAN TAB 0.5 MG PO PRN (10:34)
[2024-09-29] MEDS: ALPRAZOLAM ODT PO PRN (11:04)
[2024-09-29] MEDS: TYLENOL 325 MG TAB PO ONE (15:04)
[2024-09-30 05:42] LABS: ALANINE AMINOTRANSFERASE 59 Units/L (12-78); ALBUMIN 2.6 g/dL (3.4-5.0); ALKALINE PHOSPHATASE 58 Units/L (46-116); ASPARTATE AMINO TRANSFERASE 66 Units/L (15-37); BLOOD UREA NITROGEN 10 mg/dL (7-18); CALCIUM 8.2 mg/dL (8.5-10.1); CARBON DIOXIDE 27.5 mmol/L (21-32); CHLORIDE 106 mmol/L (98-107); COR CA(FOR HYPOALB) 9.3 mg/dL (8.5-10.1); CREATININE 1.03 mg/dL (0.55-1.02); GLUCOSE 90 mg/dL (65-99); SODIUM 138 mmol/L (136-145); eGFR NON BLACK RACES 54 (>60)
[2024-09-30 06:00] LABS: BASOPHILS % (AUTO) 0 % (0.2-1.0); EOSINOPHILS % (AUTO) 0.5 % (0.9-2.9); HEMATOCRIT 28.5 % (36.0-47.0); HEMOGLOBIN 9.7 g/dL (12.0-16.0); LYMPHOCYTES # (AUTO) 0.6 X10^3/uL (1.3-2.9); LYMPHOCYTES % (AUTO) 31.2 % (21.0-51.0); MEAN CORPUSCULAR HEMOGLOBIN 31.6 pg (27.0-34.0); MEAN CORPUSCULAR HGB CONC 34.1 g/dL (33.0-35.0); MEAN CORPUSCULAR VOLUME 92.7 fL (80.0-100.0); MEAN PLATELET VOLUME 8.8 fL (7.4-11.0); MONOCYTES # (AUTO) 0.2 x10^3/uL (0.3-0.8); MONOCYTES % (AUTO) 10.3 % (0.0-13.0); NEUTROPHILS # (AUTO) 1.2 x10^3/uL (2.2-4.8); PLATELET COUNT 64 X10^3/uL (150.0-450.0); RED BLOOD COUNT 3.08 X10^6/uL (3.5-5.4); RED CELL DISTRIBUTION WIDTH 15.8 % (11.6-16.5)
[2024-09-30 07:04] LABS: PLATELET MORPHOLOGY COMMENT NORMAL (NORMAL)
[2024-09-30 07:05] VITALS: BMI 19.4
[2024-09-30] MEDS: BENADRYL CAP/TAB 25 MG PO ONE (07:32)
--- NOTE | 2024-09-30 11:28 | PCM.PROG ---
Progress Note Progress Note for Day of Date of Exam: 09/30/24 Subjective Subjective: Patient seen at bedside, no acute events overnight. She is admitted for COVID-19 pneumonia, UTI and pancytopenia. She remains afebrile. She is on room air. Denies any SOB or cough. Denies any GI symptoms. Plt count is 64 today, she did receive 2 units of platelets yesterday. Denies any bleeding. Urine Cx grew out Proteus and Klebsiella. She is on Levaquin. She has a hx of pancreatic cancer, currently on chemotherapy. Labs/imaging reviewed: -Hgb 9.7 Plt 64 WBC 2.0 -Urine Cx: Klebsiella/Proteus -COVID-19 positive -CXR: COVID-pneumonia Plan: Continue IV antibiotics, bronchodilators and IS. Continue cough medicine prn. Continue pain control. Monitor for any signs of bleeding. Continue SCDs. Replace electrolytes as needed. Continue home medications. Continue protonix. Encouraged to sit in the chair today. Monitor respiratory status and vitals in the ICU. Isolation precautions as per protocol. Monitor AM labs/imaging. Time spent for clinical assessment, reviewing labs/imaging, physical exam, decision making and documentation greater than 45 mins. Past Medical Family Social History Allergies: Allergies ketamine Allergy (Verified 04/01/22 11:22) codeine Adverse Reaction (Verified 05/18/24 08:21) Vital Signs and I&O's Vital Signs: Vital Signs Temperature 97.8 F Temperature 97.9 F Pulse Rate 70 Pulse Rate 69 Pulse Rate 69 Pulse Rate 69 Pulse Rate 69 Pulse Rate 69 Pulse Rate 69 Pulse Rate 70 Pulse Rate 71 Pulse Rate 70 Pulse Rate 69 Pulse Rate 69 Pulse Rate 69 Pulse Rate 69 Pulse Rate 69 Pulse Rate 69 Pulse Rate 70 Pulse Rate 69 Pulse Rate 69 Pulse Rate 69 Pulse Rate 72 Pulse Rate 71 Pulse Rate 72 Pulse Rate 72 Pulse Rate 69 Pulse Rate 69 Respiratory Rate 15 Respiratory Rate 17 Respiratory Rate 18 Respiratory Rate 18 Respiratory Rate 20 Respiratory Rate 22 Respiratory Rate 18 Respiratory Rate 14 Respiratory Rate 23 Respiratory Rate 27 Respiratory Rate 27 Respiratory Rate 15 Respiratory Rate 15 Respiratory Rate 16 Respiratory Rate 17 Respiratory Rate 46 Respiratory Rate 48 Respiratory Rate 26 Respiratory Rate 21 Respiratory Rate 18 Respiratory Rate 22 Respiratory Rate 32 Respiratory Rate 26 Respiratory Rate 25 Respiratory Rate 19 Blood Pressure 117/57 Blood Pressure 126/58 Blood Pressure 124/60 Blood Pressure 112/54 Blood Pressure 112/58 Blood Pressure 108/72 O2 Sat by Pulse Oximetry 96 O2 Sat by Pulse Oximetry 96 O2 Sat by Pulse Oximetry 96 O2 Sat by Pulse Oximetry 95 O2 Sat by Pulse Oximetry 95 O2 Sat by Pulse Oximetry 95 O2 Sat by Pulse Oximetry 95 O2 Sat by Pulse Oximetry 95 O2 Sat by Pulse Oximetry 96 O2 Sat by Pulse Oximetry 98 O2 Sat by Pulse Oximetry 95 O2 Sat by Pulse Oximetry 96 O2 Sat by Pulse Oximetry 93 O2 Sat by Pulse Oximetry 93 O2 Sat by Pulse Oximetry 95 O2 Sat by Pulse Oximetry 89 O2 Sat by Pulse Oximetry 93 O2 Sat by Pulse Oximetry 92 O2 Sat by Pulse Oximetry 92 O2 Sat by Pulse Oximetry 94 O2 Sat by Pulse Oximetry 89 O2 Sat by Pulse Oximetry 90 O2 Sat by Pulse Oximetry 100 O2 Sat by Pulse Oximetry 90 Intake and Output: Intake & Output 09/27/24 09/28/24 09/29/24 09/30/24 23:59 23:59 23:59 23:59 Intake Total 950 / 950 1421 / 1421 2113 / 2113 340 / 340 Output Total 516 / 516 800 / 800 1000 / 1000 600 / 600 Balance 434 / 434 621 / 621 1113 / 1113 -260 / -260 Physical Exam Oriented: Normal Eyes: Normal Ear: Normal Nose: Normal Respiratory: Generalized and Diminished Cardiovascular: Murmur Auscultation: Bowel Sounds: Normal Palpation: Normal Tenderness: Normal Skin: Decreased Turgur Musculoskeletal: Back:Lumbar Psychiatric: Anxiety Mood Description: Anxious Affect: Normal Speech Pattern: Clear and Appropriate Laboratory and Diagnostics 09/30/24 04:42 09/30/24 04:42 Labs: Laboratory WBC 2.0 X10^3/uL (3.6-10.0) L 09/30/24 04:42 RBC 3.08 X10^6/uL (3.5-5.4) L 09/30/24 04:42 Hgb 9.7 g/dL (12.0-16.0) L 09/30/24 04:42 Hct 28.5 % (36.0-47.0) L 09/30/24 04:42 MCV 92.7 fL (80.0-100.0) 09/30/24 04:42 MCH 31.6 pg (27.0-34.0) 09/30/24 04:42 MCHC 34.1 g/dL (33.0-35.0) 09/30/24 04:42 RDW 15.8 % (11.6-16.5) 09/30/24 04:42 Plt Count 64 X10^3/uL (150.0-450.0) L 09/30/24 04:42 Plt Count Comment Decreased (ADEQUATE) A 09/30/24 04:42 MPV 8.8 fL (7.4-11.0) 09/30/24 04:42 Neut % (Auto) 58.0 % (42.0-75.0) 09/30/24 04:42 Lymph % (Auto) 31.2 % (21.0-51.0) 09/30/24 04:42 [place] % (Auto) 10.3 % (0.0-13.0) 09/30/24 04:42 Eos % (Auto) 0.5 % (0.9-2.9) L 09/30/24 04:42 Baso % (Auto) 0 % (0.2-1.0) L 09/30/24 04:42 Neut # (Auto) 1.2 x10^3/uL (2.2-4.8) L 09/30/24 04:42 Lymph # (Auto) 0.6 X10^3/uL (1.3-2.9) L 09/30/24 04:42 [place] # (Auto) 0.2 x10^3/uL (0.3-0.8) L 09/30/24 04:42 Eos # (Auto) 0.0 x10^3/uL (0.0-0.2) 09/30/24 04:42 Baso # (Auto) 0.0 X10^3/uL (0.0-0.1) 09/30/24 04:42 Absolute Nucleated RBC 0.2 /100WBC 09/30/24 04:42 Total Counted 100 09/30/24 04:42 Neutrophils % (Manual) 69 % (39-76) 09/30/24 04:42 Band Neutrophils % 2 % (0-10) 09/27/24 04:06 Lymphocytes % (Manual) 22 % (13-43) 09/30/24 04:42 Monocytes % (Manual) 9 % (4-9) 09/30/24 04:42 Plt Morphology Comment Normal (NORMAL) 09/30/24 04:42 RBC Morphology Normal (NORMAL) 09/30/24 04:42 PT 14.5 SECONDS (11.8-14.3) 09/29/24 07:57 INR Target Range - 09/29/24 07:57 INR 1.16 (0.8-1.3) 09/29/24 07:57 Sodium 138 mmol/L (136-145) 09/30/24 04:42 Corrected Sodium TNP 09/30/24 04:42 Potassium 5.0 mmol/L (3.5-5.1) 09/30/24 04:42 Chloride 106 mmol/L (98-107) 09/30/24 04:42 Carbon Dioxide 27.5 mmol/L (21-32) 09/30/24 04:42 BUN 10 mg/dL (7-18) 09/30/24 04:42 Creatinine 1.03 mg/dL (0.55-1.02) H 09/30/24 04:42 Est GFR (MDRD) Af Amer > 60 (>60) 09/30/24 04:42 Est GFR (MDRD) Non-Af 54 (>60) L 09/30/24 04:42 Glucose 90 mg/dL (65-99) 09/30/24 04:42 Lactic Acid 1.4 mmol/L (0.4-2.0) 09/26/24 19:55 Calcium 8.2 mg/dL (8.5-10.1) L 09/30/24 04:42 Corrected Calcium 9.3 mg/dL (8.5-10.1) 09/30/24 04:42 Magnesium 2.0 mg/dL (2.0-2.9) 09/29/24 05:06 Total Bilirubin 0.40 mg/dL (0.2-1.0) 09/30/24 04:42 AST 66 Units/L (15-37) H 09/30/24 04:42 ALT 59 Units/L (12-78) 09/30/24 04:42 Alkaline Phosphatase 58 Units/L (46-116) 09/30/24 04:42 C-Reactive Protein 32.80 mg/L (0-3.0) H 09/26/24 19:55 Total Protein 5.0 g/dL (6.4-8.2) L 09/30/24 04:42 Albumin 2.6 g/dL (3.4-5.0) L 09/30/24 04:42 Globulin 2.4 g/dL (2.5-4.5) L 09/30/24 04:42 Albumin/Globulin Ratio 1.1 Ratio (1.1-2.1) 09/30/24 04:42 Amylase 62 Units/L (25-115) 09/27/24 04:06 Lipase 43 Units/L (16-77) 09/27/24 04:06 Blood Type AB POSITIVE 09/29/24 07:57 Antibody Screen Negative 09/29/24 07:57 Plan (1) Acute cystitis: Status: Acute Qualifiers: Hematuria presence: without hematuria Qualified Code(s): N30.00 - Acute cystitis without hematuria (2) COVID-19: Status: Acute (3) COPD (chronic obstructive pulmonary disease): Status: Acute Qualifiers: COPD type: unspecified COPD Qualified Code(s): J44.9 - Chronic obstructive pulmonary disease, unspecified (4) Pancreatic cancer: Status: Acute (5) Chemotherapy-induced fatigue: Status: Acute (6) Pancytopenia due to chemotherapy: Status: Acute
[2024-09-30] MEDS: ULTRAM PO PRN (13:12)
[2024-10-01 06:44] LABS: BASOPHILS % (AUTO) 0.1 % (0.2-1.0); EOSINOPHILS % (AUTO) 0.2 % (0.9-2.9); HEMATOCRIT 31.8 % (36.0-47.0); HEMOGLOBIN 10.8 g/dL (12.0-16.0); LYMPHOCYTES # (AUTO) 0.3 X10^3/uL (1.3-2.9); MEAN CORPUSCULAR HEMOGLOBIN 31.5 pg (27.0-34.0); MEAN CORPUSCULAR HGB CONC 33.9 g/dL (33.0-35.0); MEAN PLATELET VOLUME 8.4 fL (7.4-11.0); MONOCYTES # (AUTO) 0.2 x10^3/uL (0.3-0.8); MONOCYTES % (AUTO) 11.1 % (0.0-13.0); NEUTROPHILS # (AUTO) 1.4 x10^3/uL (2.2-4.8); NEUTROPHILS % (AUTO) 72.6 % (42.0-75.0); PLATELET COUNT 56 X10^3/uL (150.0-450.0); RED BLOOD COUNT 3.42 X10^6/uL (3.5-5.4)
[2024-10-01 06:45] LABS: ALANINE AMINOTRANSFERASE 55 Units/L (12-78); ALBUMIN 2.8 g/dL (3.4-5.0); ALKALINE PHOSPHATASE 72 Units/L (46-116); ASPARTATE AMINO TRANSFERASE 52 Units/L (15-37); BLOOD UREA NITROGEN 9 mg/dL (7-18); CALCIUM 8.4 mg/dL (8.5-10.1); CARBON DIOXIDE 26.7 mmol/L (21-32); CHLORIDE 102 mmol/L (98-107); COR CA(FOR HYPOALB) 9.4 mg/dL (8.5-10.1); CREATININE 0.87 mg/dL (0.55-1.02); GLUCOSE 99 mg/dL (65-99); MAGNESIUM 1.7 mg/dL (2.0-2.9); POTASSIUM 5.1 mmol/L (3.5-5.1); SODIUM 134 mmol/L (136-145); TOTAL PROTEIN 5.4 g/dL (6.4-8.2); eGFR NON BLACK RACES > 60 (>60)
[2024-10-01 06:48] LABS: WHITE BLOOD COUNT 1.9 X10^3/uL (3.6-10.0)
[2024-10-01] MEDS ORDERED: CONSULT PHARMACY - POTASSIUM & MAGNESIUM XX SCH (07:00)
[2024-10-01 07:26] LABS: BAND NEUTROPHILS % 2 % (0-10)
[2024-10-01 07:28] LABS: PLATELET MORPHOLOGY COMMENT NORMAL (NORMAL)
[2024-10-01] MEDS: MAG-OX TAB PO SCH (08:14)
--- NOTE | 2024-10-01 12:17 | PCM.PROG ---
Progress Note Progress Note for Day of Date of Exam: 10/01/24 Subjective Subjective: Patient seen at bedside, no acute events overnight. She is admitted for COVID-19 pneumonia, UTI and pancytopenia. She remains afebrile. She is on room air. She reports feeling weak, not much appetite. She tried to eat different things but states she has no taste. Denies any SOB or cough. Denies any GI symptoms. Plt count is 56 today. Denies any bleeding. Urine Cx grew out Proteus and Klebsiella. She is on Levaquin. She has a hx of pancreatic cancer, currently on chemotherapy. Labs/imaging reviewed: -Hgb 10.8 Plt 56 WBC 1.9 -Urine Cx: Klebsiella/Proteus -COVID-19 positive -CXR: COVID-pneumonia Plan: Continue IV antibiotics, bronchodilators and IS. Continue cough medicine prn. Continue pain control. Monitor for any signs of bleeding. Continue SCDs. Replace electrolytes as needed. Continue home medications. Stop KCl, patient's K is 5.1 today. Continue protonix. Encouraged to sit in the chair today. Encouraged PO intake, patient does not want Ensure but does drink Boost at home, advised to have someone bring Boost here and she can drink that. Isolation precautions as per protocol. Monitor AM labs/imaging. Past Medical Family Social History Allergies: Allergies ketamine Allergy (Verified 04/01/22 11:22) codeine Adverse Reaction (Verified 05/18/24 08:21) Vital Signs and I&O's Vital Signs: Vital Signs Temperature 97.9 F Temperature 98.3 F Pulse Rate [Right Brachial] 107 Pulse Rate [Right Brachial] 73 Respiratory Rate 19 Respiratory Rate 19 Respiratory Rate 18 Respiratory Rate 18 Blood Pressure [Right Arm] 131/76 Blood Pressure [Right Arm] 132/61 O2 Sat by Pulse Oximetry 94 O2 Sat by Pulse Oximetry 94 Intake and Output: Intake & Output 09/28/24 09/29/24 09/30/24 10/01/24 23:59 23:59 23:59 22:59 Intake Total 1421 / 1421 2113 / 2113 1259 / 1259 362 / 362 Output Total 800 / 800 1000 / 1000 1999 / 1999 Balance 621 / 621 1113 / 1113 -741 / -741 362 / 362 Physical Exam Oriented: Normal Eyes: Normal Ear: Normal Nose: Normal Throat: Exudate Respiratory: Generalized and Diminished Cardiovascular: Murmur Auscultation: Bowel Sounds: Normal Palpation: Normal Tenderness: Normal Skin: Decreased Turgur Musculoskeletal: Back:Lumbar Psychiatric: Anxiety Mood Description: Anxious Affect: Normal Speech Pattern: Clear and Appropriate Laboratory and Diagnostics 10/01/24 05:56 10/01/24 05:56 Labs: Laboratory WBC 1.9 X10^3/uL (3.6-10.0) L* 10/01/24 05:56 RBC 3.42 X10^6/uL (3.5-5.4) L 10/01/24 05:56 Hgb 10.8 g/dL (12.0-16.0) L 10/01/24 05:56 Hct 31.8 % (36.0-47.0) L 10/01/24 05:56 MCV 93.0 fL (80.0-100.0) 10/01/24 05:56 MCH 31.5 pg (27.0-34.0) 10/01/24 05:56 MCHC 33.9 g/dL (33.0-35.0) 10/01/24 05:56 RDW 16.0 % (11.6-16.5) 10/01/24 05:56 Plt Count 56 X10^3/uL (150.0-450.0) L 10/01/24 05:56 Plt Count Comment Decreased (ADEQUATE) A 10/01/24 05:56 MPV 8.4 fL (7.4-11.0) 10/01/24 05:56 Neut % (Auto) 72.6 % (42.0-75.0) 10/01/24 05:56 Lymph % (Auto) 16.0 % (21.0-51.0) L 10/01/24 05:56 [place] % (Auto) 11.1 % (0.0-13.0) 10/01/24 05:56 Eos % (Auto) 0.2 % (0.9-2.9) L 10/01/24 05:56 Baso % (Auto) 0.1 % (0.2-1.0) L 10/01/24 05:56 Neut # (Auto) 1.4 x10^3/uL (2.2-4.8) L 10/01/24 05:56 Lymph # (Auto) 0.3 X10^3/uL (1.3-2.9) L 10/01/24 05:56 [place] # (Auto) 0.2 x10^3/uL (0.3-0.8) L 10/01/24 05:56 Eos # (Auto) 0.0 x10^3/uL (0.0-0.2) 10/01/24 05:56 Baso # (Auto) 0.0 X10^3/uL (0.0-0.1) 10/01/24 05:56 Absolute Nucleated RBC 0.1 /100WBC 10/01/24 05:56 Total Counted 100 10/01/24 05:56 Neutrophils % (Manual) 75 % (39-76) 10/01/24 05:56 Band Neutrophils % 2 % (0-10) 10/01/24 05:56 Lymphocytes % (Manual) 13 % (13-43) 10/01/24 05:56 Monocytes % (Manual) 10 % (4-9) H 10/01/24 05:56 Plt Morphology Comment Normal (NORMAL) 10/01/24 05:56 RBC Morphology Normal (NORMAL) 10/01/24 05:56 PT 14.5 SECONDS (11.8-14.3) 09/29/24 07:57 INR Target Range - 09/29/24 07:57 INR 1.16 (0.8-1.3) 09/29/24 07:57 Sodium 134 mmol/L (136-145) L 10/01/24 05:56 Corrected Sodium TNP 10/01/24 05:56 Potassium 5.1 mmol/L (3.5-5.1) 10/01/24 05:56 Chloride 102 mmol/L (98-107) 10/01/24 05:56 Carbon Dioxide 26.7 mmol/L (21-32) 10/01/24 05:56 BUN 9 mg/dL (7-18) 10/01/24 05:56 Creatinine 0.87 mg/dL (0.55-1.02) 10/01/24 05:56 Est GFR (MDRD) Af Amer > 60 (>60) 10/01/24 05:56 Est GFR (MDRD) Non-Af > 60 (>60) 10/01/24 05:56 Glucose 99 mg/dL (65-99) 10/01/24 05:56 Lactic Acid 1.4 mmol/L (0.4-2.0) 09/26/24 19:55 Calcium 8.4 mg/dL (8.5-10.1) L 10/01/24 05:56 Corrected Calcium 9.4 mg/dL (8.5-10.1) 10/01/24 05:56 Magnesium 1.7 mg/dL (2.0-2.9) L 10/01/24 05:56 Total Bilirubin 0.60 mg/dL (0.2-1.0) 10/01/24 05:56 AST 52 Units/L (15-37) H 10/01/24 05:56 ALT 55 Units/L (12-78) 10/01/24 05:56 Alkaline Phosphatase 72 Units/L (46-116) 10/01/24 05:56 C-Reactive Protein 32.80 mg/L (0-3.0) H 09/26/24 19:55 Total Protein 5.4 g/dL (6.4-8.2) L 10/01/24 05:56 Albumin 2.8 g/dL (3.4-5.0) L 10/01/24 05:56 Globulin 2.6 g/dL (2.5-4.5) 10/01/24 05:56 Albumin/Globulin Ratio 1.1 Ratio (1.1-2.1) 10/01/24 05:56 Amylase 62 Units/L (25-115) 09/27/24 04:06 Lipase 43 Units/L (16-77) 09/27/24 04:06 Blood Type AB POSITIVE 09/29/24 07:57 Antibody Screen Negative 09/29/24 07:57 Plan (1) Acute cystitis: Status: Acute Qualifiers: Hematuria presence: without hematuria Qualified Code(s): N30.00 - Acute cystitis without hematuria Plan: (2) COVID-19: Status: Acute (3) COPD (chronic obstructive pulmonary disease): Status: Chronic Qualifiers: COPD type: unspecified COPD Qualified Code(s): J44.9 - Chronic o bstructive pulmonary disease, unspecified (4) Pancreatic cancer: Status: Acute (5) Chemotherapy-induced fatigue: Status: Acute (6) Pancytopenia due to chemotherapy: Status: Acute
[2024-10-02] MEDS: COLACE CAP 100 MG PO PRN (05:39)
[2024-10-02 06:54] LABS: BASOPHILS % (AUTO) 0.2 % (0.2-1.0); EOSINOPHILS % (AUTO) 0.4 % (0.9-2.9); HEMATOCRIT 28.9 % (36.0-47.0); HEMOGLOBIN 10.1 g/dL (12.0-16.0); LYMPHOCYTES # (AUTO) 0.3 X10^3/uL (1.3-2.9); LYMPHOCYTES % (AUTO) 18.3 % (21.0-51.0); MEAN CORPUSCULAR HEMOGLOBIN 32.4 pg (27.0-34.0); MEAN CORPUSCULAR HGB CONC 34.9 g/dL (33.0-35.0); MEAN CORPUSCULAR VOLUME 92.7 fL (80.0-100.0); MEAN PLATELET VOLUME 8.1 fL (7.4-11.0); MONOCYTES # (AUTO) 0.3 x10^3/uL (0.3-0.8); MONOCYTES % (AUTO) 17.1 % (0.0-13.0); NEUTROPHILS # (AUTO) 1.2 x10^3/uL (2.2-4.8); PLATELET COUNT 52 X10^3/uL (150.0-450.0); RED BLOOD COUNT 3.12 X10^6/uL (3.5-5.4); RED CELL DISTRIBUTION WIDTH 15.7 % (11.6-16.5)
[2024-10-02 06:56] LABS: WHITE BLOOD COUNT 1.9 X10^3/uL (3.6-10.0)
[2024-10-02 07:14] LABS: PLATELET MORPHOLOGY COMMENT NORMAL (NORMAL)
[2024-10-02 07:17] LABS: ALANINE AMINOTRANSFERASE 47 Units/L (12-78); ALBUMIN 2.6 g/dL (3.4-5.0); ALKALINE PHOSPHATASE 67 Units/L (46-116); ASPARTATE AMINO TRANSFERASE 37 Units/L (15-37); BLOOD UREA NITROGEN 6 mg/dL (7-18); CALCIUM 8.2 mg/dL (8.5-10.1); CHLORIDE 96 mmol/L (98-107); COR CA(FOR HYPOALB) 9.3 mg/dL (8.5-10.1); CREATININE 0.82 mg/dL (0.55-1.02); GLUCOSE 97 mg/dL (65-99); MAGNESIUM 1.7 mg/dL (2.0-2.9); POTASSIUM 4.3 mmol/L (3.5-5.1); SODIUM 132 mmol/L (136-145); TOTAL PROTEIN 5.2 g/dL (6.4-8.2); eGFR NON BLACK RACES > 60 (>60)
[2024-10-02] MEDS: SOLU-Medrol 40 MG VIAL IVP SCH (09:27)
--- NOTE | 2024-10-02 09:56 | RAD ---
EXAM:CHEST, PA/LAT ADULTHISTORY:PNEUMONIA; UnavailableCOMPARISON:September 29, 2024 chest x-rayFINDINGS:The trachea is midline. The cardiac silhouette is stable as is a left-sided pacing device and right-sided Port-A-Cath. The lungs demonstrate stable interstitial changes with probable tiny effusions along with changes of COPD. Overall these findings appear unchanged. There is a questionable nodular density only seen on the lateral view posteriorly. This is not seen on the frontal view could be followed up with a chest CT to exclude underlying nodule. The bony thorax is unremarkable.IMPRESSION:Stable interstitial infiltrates with tiny effusions similar to priorQuestionable nodular density only seen on the lateral view as above. This could be followed up with CT for assurance.THIS IS AN ELECTRONICALLY VERIFIED FINAL [id number]/02/2024 9:51 AM - Electronically signed by Kaiser Carias MD
[2024-10-03 06:22] LABS: BASOPHILS % (AUTO) 0.4 % (0.2-1.0); EOSINOPHILS % (AUTO) 0.1 % (0.9-2.9); HEMATOCRIT 26.7 % (36.0-47.0); HEMOGLOBIN 9.3 g/dL (12.0-16.0); LYMPHOCYTES # (AUTO) 0.5 X10^3/uL (1.3-2.9); MEAN CORPUSCULAR HEMOGLOBIN 32.2 pg (27.0-34.0); MEAN CORPUSCULAR HGB CONC 34.8 g/dL (33.0-35.0); MEAN CORPUSCULAR VOLUME 92.5 fL (80.0-100.0); MEAN PLATELET VOLUME 8.1 fL (7.4-11.0); MONOCYTES # (AUTO) 0.4 x10^3/uL (0.3-0.8); MONOCYTES % (AUTO) 20.5 % (0.0-13.0); NEUTROPHILS # (AUTO) 1.2 x10^3/uL (2.2-4.8); PLATELET COUNT 70 X10^3/uL (150.0-450.0); RED BLOOD COUNT 2.89 X10^6/uL (3.5-5.4); RED CELL DISTRIBUTION WIDTH 15.3 % (11.6-16.5); WHITE BLOOD COUNT 2.1 X10^3/uL (3.6-10.0)
[2024-10-03 06:34] LABS: BLOOD UREA NITROGEN 7 mg/dL (7-18); CALCIUM 8.7 mg/dL (8.5-10.1); CARBON DIOXIDE 30.4 mmol/L (21-32); CHLORIDE 101 mmol/L (98-107); COR NA(FOR HYPERGLY) 137 mmol/L (136-145); CREATININE 0.79 mg/dL (0.55-1.02); GLUCOSE 115 mg/dL (65-99); POTASSIUM 4.7 mmol/L (3.5-5.1); SODIUM 137 mmol/L (136-145); eGFR NON BLACK RACES > 60 (>60)
[2024-10-03 06:48] LABS: PLATELET MORPHOLOGY COMMENT NORMAL (NORMAL)
[2024-10-03 06:54] LABS: ALANINE AMINOTRANSFERASE 36 Units/L (12-78); ALBUMIN 2.4 g/dL (3.4-5.0); ALKALINE PHOSPHATASE 61 Units/L (46-116); ASPARTATE AMINO TRANSFERASE 31 Units/L (15-37); MAGNESIUM 1.9 mg/dL (2.0-2.9); TOTAL PROTEIN 5.1 g/dL (6.4-8.2)
[2024-10-03] MEDS: MILK OF MAGNESIA PO PRN (09:07)
[2024-10-03] MEDS: K-DUR TAB 20 MEQ PO SCH (09:47)
[2024-10-03] MEDS: LASIX IVP ONE (09:48)
[2024-10-03] MEDS: PYRIDIUM PO SCH (20:51)
[2024-10-04 06:08] LABS: BASOPHILS % (AUTO) 0.3 % (0.2-1.0); EOSINOPHILS % (AUTO) 0.2 % (0.9-2.9); HEMATOCRIT 30.3 % (36.0-47.0); HEMOGLOBIN 10.5 g/dL (12.0-16.0); LYMPHOCYTES # (AUTO) 0.5 X10^3/uL (1.3-2.9); LYMPHOCYTES % (AUTO) 20.2 % (21.0-51.0); MEAN CORPUSCULAR HEMOGLOBIN 32.1 pg (27.0-34.0); MEAN CORPUSCULAR HGB CONC 34.5 g/dL (33.0-35.0); MEAN CORPUSCULAR VOLUME 93.2 fL (80.0-100.0); MEAN PLATELET VOLUME 7.7 fL (7.4-11.0); MONOCYTES # (AUTO) 0.7 x10^3/uL (0.3-0.8); MONOCYTES % (AUTO) 30.3 % (0.0-13.0); NEUTROPHILS # (AUTO) 1.1 x10^3/uL (2.2-4.8); PLATELET COUNT 75 X10^3/uL (150.0-450.0); RED BLOOD COUNT 3.26 X10^6/uL (3.5-5.4); RED CELL DISTRIBUTION WIDTH 15.6 % (11.6-16.5); WHITE BLOOD COUNT 2.3 X10^3/uL (3.6-10.0)
[2024-10-04 06:25] LABS: ALANINE AMINOTRANSFERASE 35 Units/L (12-78); ALBUMIN 3.1 g/dL (3.4-5.0); ALKALINE PHOSPHATASE 70 Units/L (46-116); ASPARTATE AMINO TRANSFERASE 28 Units/L (15-37); BLOOD UREA NITROGEN 8 mg/dL (7-18); CALCIUM 9.1 mg/dL (8.5-10.1); CARBON DIOXIDE 32.3 mmol/L (21-32); CHLORIDE 97 mmol/L (98-107); COR CA(FOR HYPOALB) 9.8 mg/dL (8.5-10.1); CREATININE 0.91 mg/dL (0.55-1.02); GLUCOSE 89 mg/dL (65-99); MAGNESIUM 2.1 mg/dL (2.0-2.9); SODIUM 136 mmol/L (136-145); TOTAL PROTEIN 6.3 g/dL (6.4-8.2); eGFR NON BLACK RACES > 60 (>60)
[2024-10-04 07:19] LABS: PLATELET MORPHOLOGY COMMENT NORMAL (NORMAL)
[2024-10-04] MEDS ORDERED: OMNIPAQUE 350 mg/mL 100 mL BTL 100 ML ONE (09:26)
--- NOTE | 2024-10-04 15:18 | CT ---
EXAMINATION:CHEST WITH CONTRASTHISTORY:abnormal cxr, hx cancer; .COMPARISON:Chest x-ray 10/02/2024TECHNIQUE:Routine axial imaging of the chest was performed. Postcontrast CT chest was performed.. The above CT scan was done with automated exposure control and the mA and kV was adjusted to obtain quality images according to patient size.FINDINGS:Lungs: There is respiratory motion. Centrilobular emphysema. 2 mm nodule in the right upper lobe. There is a 3 mm nodule in the superior segment of the right lower lobe. 9.3 x 8.9 mm nodule in the right lower lobe. There is central bronchiectasis with bronchial thickening and mucous plugging. Atelectasis is noted in the lung bases. No acute infiltrates, ground-glass opacitiesCentral Airways: No obstructing endobronchial lesionPleura: Trace pleural fluid on the left. No pleural fluid on the right. No pneumothoraxThoracic Aorta: Ectasia. Atherosclerotic calcificationMain Pulmonary Trunk: Normal diameter. Note this is not a PE study. There is pulmonary embolus in the right main pulmonary artery and segmental branches to the right upper lobe and right middle lobe.Lymph Nodes: No pathologic lymphadenopathyHeart/Pericardium: Normal heart size. No significant pericardial effusion. Coronary artery calcification in the LAD and circumflex.Liver: No acute finding or focal lesion.GB/Biliary: Contracted or surgically absentSpleen: Normal size and densityPancreas: No acute findings as visualizedAdrenal Glands: No massKidneys no hydronephrosis.Abdominal Aorta: Infrarenal aortic aneurysm partially imaged measuring 4.2 x 3.68 cm.Retroperitoneum: No pathologically enlarged lymph nodesBowel/Peritoneal Cavity: No acute findings as visualizedOsseous Structures: Osteopenia. Degenerative changes in the thoracolumbar spine. No acute findings. No bony lesions. Misregistration artifact on the sagittal images due to respiratory motionOther: NoneIMPRESSION:Central bronchiectasis bronchial thickening and mucous plugging. Atelectasis in the lung bases.2 mm nodule right upper lobe. 3 mm nodule in the right lower lobe.9.3 x 8.9 mm nodule in the right lower lobe. Follow-up per Fleischner protocolIncidental note is made of pulmonary embolus in the right main pulmonary artery and segmental branches to the right upper lobe and lower lobe. No saddle embolus or CT evidence of right heart strain. Recommend V/Q scan for further assessmentInfrarenal aortic aneurysm partially imaged.The above CT scan was done with automated exposure control and the mA and kV was adjusted to obtain quality images according to patient sizeTHIS IS AN ELECTRONICALLY VERIFIED FINAL [id number]/04/2024 3:14 PM - Electronically signed by Rodger Alcantara MD
--- NOTE | 2024-10-04 18:14 | VAS ---
EXAM: LOWER EXT VENOUS, BILATERAL HISTORY: ABN CT SCAN; ABN CT COMPARISON: No relevant prior studies available. TECHNIQUE: Grayscale and color Doppler images of the lower extremities. FINDINGS: Right lower extremity: Common femoral, femoral, popliteal and posterior tibial veins demonstrate normal compressibility, col or Doppler flow, waveforms and augmentation with no filling defects. Soft tissues: Unremarkable Left lower extremity: Common femoral, femoral, popliteal and posterior tibial veins demonstrate normal compressibility, col or Doppler flow, waveforms and augmentation with no filling defects. Soft tissues:Unremarkable IMPRESSION: No evidence of deep venous thrombus in either lower extremity. THIS IS AN ELECTRONICALLY VERIFIED FINAL REPORT 10/04/2024 6:11 PM - Electronically signed by Jose Roberto Jaramillo MD
[2024-10-05] MEDS: ELIQUIS PO SCH (00:43)
[2024-10-05 06:31] LABS: BASOPHILS % (AUTO) 0.5 % (0.2-1.0); EOSINOPHILS % (AUTO) 0.3 % (0.9-2.9); HEMATOCRIT 29.4 % (36.0-47.0); LYMPHOCYTES # (AUTO) 0.8 X10^3/uL (1.3-2.9); LYMPHOCYTES % (AUTO) 28.2 % (21.0-51.0); MEAN CORPUSCULAR HEMOGLOBIN 31.8 pg (27.0-34.0); MEAN CORPUSCULAR HGB CONC 34.1 g/dL (33.0-35.0); MEAN CORPUSCULAR VOLUME 93.4 fL (80.0-100.0); MEAN PLATELET VOLUME 8.3 fL (7.4-11.0); MONOCYTES # (AUTO) 0.8 x10^3/uL (0.3-0.8); MONOCYTES % (AUTO) 28.1 % (0.0-13.0); NEUTROPHILS # (AUTO) 1.2 x10^3/uL (2.2-4.8); NEUTROPHILS % (AUTO) 42.9 % (42.0-75.0); PLATELET COUNT 97 X10^3/uL (150.0-450.0); RED BLOOD COUNT 3.15 X10^6/uL (3.5-5.4); RED CELL DISTRIBUTION WIDTH 15.9 % (11.6-16.5); WHITE BLOOD COUNT 2.9 X10^3/uL (3.6-10.0)
[2024-10-05 07:05] LABS: ALANINE AMINOTRANSFERASE 29 Units/L (12-78); ALKALINE PHOSPHATASE 71 Units/L (46-116); ASPARTATE AMINO TRANSFERASE 30 Units/L (15-37); BLOOD UREA NITROGEN 6 mg/dL (7-18); CALCIUM 8.9 mg/dL (8.5-10.1); CARBON DIOXIDE 28.8 mmol/L (21-32); CHLORIDE 98 mmol/L (98-107); COR CA(FOR HYPOALB) 9.7 mg/dL (8.5-10.1); CREATININE 0.96 mg/dL (0.55-1.02); GLUCOSE 74 mg/dL (65-99); POTASSIUM 5.5 mmol/L (3.5-5.1); SODIUM 133 mmol/L (136-145); eGFR NON BLACK RACES 59 (>60)
[2024-10-05 07:35] LABS: BAND NEUTROPHILS % 6 % (0-10); PLATELET MORPHOLOGY COMMENT NORMAL (NORMAL)
[2024-10-05 08:05] VITALS: BP 109/52; PULSE 85; RESP 19; TEMP 97.4
[2024-10-05 08:23] VITALS: O2SAT 96
== END 2024-10-05 10:05 | disposition home health service (06) | DRG 177 ==
LOC: ER 18:34 → ICU 18:34 → OBSVTOIN 22:19 → ICU 22:56 → MED/SURG 09-30 15:31
PROVIDERS: ADMIT Internal Medicine; ATTEND Internal Medicine
DX: J44.9 Chronic obstructive pulmonary disease, unspecified; Z92.21 Personal history of antineoplastic chemotherapy; C25.9 Malignant neoplasm of pancreas, unspecified; Z59.89 Other problems related to housing and economic circumstances; N30.00 Acute cystitis without hematuria; R79.82 Elevated C-reactive protein (CRP); C79.9 Secondary malignant neoplasm of unspecified site; E78.2 Mixed hyperlipidemia; B95.3 Streptococcus pneumoniae as the cause of diseases classified elsewhere; R26.89 Other abnormalities of gait and mobility; I26.99 Other pulmonary embolism without acute cor pulmonale; R06.02 Shortness of breath; Z16.29 Resistance to other single specified antibiotic; E83.42 Hypomagnesemia; Z16.11 Resistance to penicillins; R73.09 Other abnormal glucose; Z29.89 Encounter for other specified prophylactic measures; R53.1 Weakness; E87.6 Hypokalemia; D61.810 Antineoplastic chemotherapy induced pancytopenia; R53.83 Other fatigue; E03.8 Other specified hypothyroidism; I25.10 Atherosclerotic heart disease of native coronary artery without angina pectoris; U07.1 COVID-19; J12.82 Pneumonia due to coronavirus disease 2019; Z66 Do not resuscitate; B96.4 Proteus (mirabilis) (morganii) as the cause of diseases classified elsewhere